=== PATIENT | male | born 1955 | race Caucasian/White ===

== ENCOUNTER 2023-03-14 07:38 | Day surgery (SDC) | payer OTHER ==
[~2023-03-14] VITALS: Ht 157.5 cm; Wt 66.4 kg
[~2023-03-14 07:38] MED LIST: APIX5TAB PO; ATOR20TA PO; METF-1211 PO; METO25 PO; SACU1TAB4 PO; SODIUM CHLORIDE 0.9% 1,000 ML ONE; SPIR-37 PO
[2023-03-14] MEDS ORDERED: LIDOCAINE 2% 11 ML JELLY TP ONE (07:39)
[2023-03-14] MEDS ORDERED: ALBUTEROL SULFATE 2.5 MG/0.5 ML NEB SOLUTION NEB ONE (07:39)
[2023-03-14] MEDS ORDERED: LIDOCAINE 4% 50 ML SOLUTION TP ONE (07:39)
[2023-03-14] MEDS ORDERED: BENZOCAINE 20% 50 MCG/SPRAY 57 GM TP ONE (07:39)
[2023-03-14] MEDS ORDERED: SODIUM CHLORIDE 0.9% 1,000 ML IV ONE (08:00)
[2023-03-14 08:46] LABS: GLUCOMETER DEV NAME(LOC) SDS.; GLUCOSE,POINT OF CARE 108 MG/DL (70-110)
[2023-03-14] MEDS ORDERED: MIDAZOLAM HCL 2 MG/2 ML VIAL ONE (09:00)
[2023-03-14] MEDS ORDERED: FentaNYL CITRATE PF 100 MCG/2 ML VIAL ONE (09:00)
[2023-03-14 09:30] VITALS: PULSE 69; RESP 14; O2SAT 100
[2023-03-14] MEDS ORDERED: MethylPREDNISolone SOD SUCC 125 MG/2 ML VIAL IVP ONE (09:30)
== END 2023-03-14 12:00 | disposition home or self-care (01) ==
LOC: SURGERY 07:38
PROVIDERS: ATTEND Internal Medicine Critical Care Medicine
DX: J38.4 Edema of larynx (principal); B37.0 Candidal stomatitis; I10 Essential (primary) hypertension; E11.9 Type 2 diabetes mellitus without complications; Z98.890 Other specified postprocedural states; Z79.899 Other long term (current) drug therapy
CPT/HCPCS: 31623; 88112; 82962; 87206; 87101; 87220; 87070; 31624; 94640; 71045; 87015; J3010; J2250; J2930; Q9967; J7030; J7613; Z7610

== ENCOUNTER 2023-11-05 05:28 | Day surgery (SDC) | payer OTHER ==
[~2023-11-05] VITALS: Ht 167.6 cm; Wt 68.2 kg
[~2023-11-05 05:28] MED LIST changes: +ALBU18HF12 IH; +DOXY100C61 PO; +FAMO40TA7 PO; +FLUT16H NASAL; +FURO20TA4 PO; +KETOROLAC TROMETHAMINE 0.5% 5 ML OPHTHALMIC SOLUTION ONE; -METF-1211 PO; +METF-446 PO; +METO-408 PO; -METO25 PO; +MONT-40 PO; +MOXIFLOXACIN HCL 0.5% 3 ML OPHTHALMIC SOLUTION ONE; +NYST100033 PO; +PHENYLEPHRINE HCL 2.5% 2 ML OPHTHALMIC SOLUTION ONE; +POTA8CAP20 PO; +PRED-729 PO; +PROM118S5 PO; +RINGERS SOLUTION,LACTATED 500 ML IV ONE; -SODIUM CHLORIDE 0.9% 1,000 ML ONE; +SUCR1TAB2 PO; +TROPICAMIDE 1% 2 ML OPHTHALMIC SOLUTION ONE
[2023-11-05] MEDS: RINGERS SOLUTION,LACTATED 500 ML IV ONE (06:07)
[2023-11-05] MEDS: MOXIFLOXACIN HCL 0.5% 3 ML OPHTHALMIC SOLUTION OD SCH (06:08)
[2023-11-05] MEDS: TROPICAMIDE 1% 2 ML OPHTHALMIC SOLUTION OD SCH (06:08)
[2023-11-05] MEDS: PHENYLEPHRINE HCL 2.5% 2 ML OPHTHALMIC SOLUTION OD SCH (06:08)
[2023-11-05] MEDS: KETOROLAC TROMETHAMINE 0.5% 5 ML OPHTHALMIC SOLUTION OD SCH (06:08)
[2023-11-05] MEDS ORDERED: CHONDR SULF A SOD/HYALURONATE 1.05 ML KIT IO ONE (06:09)
[2023-11-05 06:36] LABS: GLUCOMETER DEV NAME(LOC) SDS.; GLUCOSE,POINT OF CARE 123 MG/DL (70-110)
[2023-11-05] MEDS ORDERED: FentaNYL CITRATE PF 100 MCG/2 ML VIAL ONE (06:37)
[2023-11-05] MEDS ORDERED: MIDAZOLAM HCL 2 MG/2 ML VIAL ONE (06:37)
[2023-11-05] MEDS: TETRACAINE HCL/PF 0.5% 4 ML OPHTHALMIC SOLUTION ONE (07:15)
[2023-11-05] MEDS: BALANCED SALT 15 ML OPHTHALMIC IRRIG.SOLN ONE (07:15)
[2023-11-05] MEDS: LIDOCAINE/PF 1% 2 ML VIAL ONE (07:15)
[2023-11-05] MEDS: EPINEPHrine 1:1,000 [1 MG/ML] VIAL ONE (07:15)
[2023-11-05] MEDS: POVIDONE-IODINE 5% 30 ML OPHTHALMIC SOLUTION ONE (07:15)
[2023-11-05] MEDS ORDERED: OXYGEN THERAPY IH SCH (08:00)
== END 2023-11-05 08:10 | disposition home or self-care (01) ==
LOC: SURGERY 05:28
PROVIDERS: ATTEND Ophthalmology
DX: H25.11 Age-related nuclear cataract, right eye (principal); I45.2 Bifascicular block; E78.00 Pure hypercholesterolemia, unspecified; Z79.01 Long term (current) use of anticoagulants; Z90.89 Acquired absence of other organs; Z88.0 Allergy status to penicillin
CPT/HCPCS: 93005; 66984; 82962; J7321; J0171; J3010; J3490; J2250; J7120; V2632

== ENCOUNTER 2023-11-17 06:11 | Day surgery (SDC) | payer OTHER ==
[~2023-11-17] VITALS: Ht 167.6 cm; Wt 69.1 kg
[~2023-11-17 06:11] MED LIST changes: -FURO20TA4 PO; -KETOROLAC TROMETHAMINE 0.5% 5 ML OPHTHALMIC SOLUTION ONE; -MOXIFLOXACIN HCL 0.5% 3 ML OPHTHALMIC SOLUTION ONE; -PHENYLEPHRINE HCL 2.5% 2 ML OPHTHALMIC SOLUTION ONE; -RINGERS SOLUTION,LACTATED 500 ML IV ONE; -TROPICAMIDE 1% 2 ML OPHTHALMIC SOLUTION ONE
[2023-11-17] MEDS ORDERED: SODIUM CHLORIDE 0.9% 0 ML ONE (07:17)
[2023-11-17] MEDS ORDERED: SODIUM CHLORIDE 0.9% 1,000 ML ONE (07:22)
[2023-11-17 08:05] LABS: GLUCOMETER DEV NAME(LOC) SDS.; GLUCOSE,POINT OF CARE 115 MG/DL (70-110)
[2023-11-17] MEDS ORDERED: MIDAZOLAM HCL 2 MG/2 ML VIAL ONE (08:05)
[2023-11-17] MEDS ORDERED: FentaNYL CITRATE PF 100 MCG/2 ML VIAL ONE (08:05)
[2023-11-17] MEDS: SODIUM CHLORIDE 0.9% 1,000 ML IV ONE (08:25)
[2023-11-17 09:10] VITALS: PULSE 67; RESP 18; O2SAT 97
[2023-11-17] MEDS ORDERED: MethylPREDNISolone SOD SUCC 125 MG/2 ML VIAL ONE (09:41)
[2023-11-17] MEDS: MethylPREDNISolone SOD SUCC 125 MG/2 ML VIAL IVP ONE (09:47)
[2023-11-17] MEDS ORDERED: LIDOCAINE 4% 50 ML SOLUTION TP ONE (12:00)
[2023-11-17] MEDS ORDERED: ALBUTEROL SULFATE 2.5 MG/0.5 ML NEB SOLUTION NEB ONE (12:00)
[2023-11-17] MEDS ORDERED: BENZOCAINE 20% 50 MCG/SPRAY 57 GM TP ONE (12:00)
[2023-11-17] MEDS ORDERED: LIDOCAINE 2% 11 ML JELLY TP ONE (12:00)
== END 2023-11-17 11:35 | disposition home or self-care (01) ==
LOC: SURGERY 06:11
PROVIDERS: ATTEND Internal Medicine Critical Care Medicine
DX: R05.3 Chronic cough (principal); R06.1 Stridor; R91.8 Other nonspecific abnormal finding of lung field; J98.09 Other diseases of bronchus, not elsewhere classified; J98.8 Other specified respiratory disorders; J84.10 Pulmonary fibrosis, unspecified; I45.10 Unspecified right bundle-branch block; E11.9 Type 2 diabetes mellitus without complications; E78.00 Pure hypercholesterolemia, unspecified; Z79.01 Long term (current) use of anticoagulants; Z79.84 Long term (current) use of oral hypoglycemic drugs; Z79.899 Other long term (current) drug therapy; Z98.41 Cataract extraction status, right eye; Z98.890 Other specified postprocedural states; Z88.0 Allergy status to penicillin
CPT/HCPCS: 31623; 82962; 87206; 87101; 87220; 87070; 88108; 87186; 31624; 71045; 87015; 93005; J3010; J2250; J2919; J7030; J7613; Z7610

== ENCOUNTER → 2025-02-07 | Day surgery (SDC) | payer OTHER ==
[~2025-02-07] VITALS: Ht 167.6 cm; Wt 71.4 kg
[~2025-02-07] MED LIST changes: +ALBUTEROL SULFATE 2.5 MG/0.5 ML NEB SOLUTION NEB ONE; +BENZOCAINE 20% 50 MCG/SPRAY 57 GM TP ONE; +DOXY-466 PO; -DOXY100C61 PO; +FentaNYL CITRATE PF 100 MCG/2 ML VIAL ONE; +LIDOCAINE 2% 11 ML JELLY TP ONE; +LIDOCAINE 4% 50 ML SOLUTION TP ONE; +MIDAZOLAM HCL 2 MG/2 ML VIAL ONE; +SODIUM CHLORIDE 0.9% 1,000 ML ONE
[2025-02-07] MEDS: SODIUM CHLORIDE 0.9% 1,000 ML IV ONE (08:03)
[2025-02-07 08:51] LABS: GLUCOMETER DEV NAME(LOC) SDS.; GLUCOSE,POINT OF CARE 139 MG/DL (70-110)
[2025-02-07 09:58] VITALS: PULSE 76; RESP 18; O2SAT 98
== END | disposition home or self-care (01) ==
LOC: SURGERY 06:42
PROVIDERS: ATTEND Internal Medicine Critical Care Medicine
DX: J38.4 Edema of larynx (principal); B37.0 Candidal stomatitis; R05.3 Chronic cough; R04.2 Hemoptysis; E11.9 Type 2 diabetes mellitus without complications; E78.00 Pure hypercholesterolemia, unspecified; I10 Essential (primary) hypertension; J45.909 Unspecified asthma, uncomplicated; Z98.42 Cataract extraction status, left eye; Z98.41 Cataract extraction status, right eye; Z79.84 Long term (current) use of oral hypoglycemic drugs
CPT/HCPCS: 31623; 82962; 87206; 87101; 87220; 87070; 31624; 71045; 87015; J3010; J2250; J2919; J7030; 88108; J7613; Z7610